=== PATIENT | male | born 1990 | race American Indian/Alaskan Native ===

== ENCOUNTER 2018-05-10 20:47 | Emergency (ER) | payer SELFPAY ==
--- NOTE | 2018-05-10 21:02 | Emergency Department Report ---
Blank Doc - Documentation Documentation: Bump on left eyebrow and left jaw time a few months. 9/10 when he touches it. Itches. Has had drainage This initial assessment diagnostic orders/clinical plan/treatment (s) is/Are subject change based on patient's health status, clinical progression and re- assessment by fellow clinical providers in the ED. Further treatment and work-up at subsequent clinical providers discretion. Patient/guardians urged not to elope from their condition may be serious if not clinically assessed and managed. Initial order include:
[2018-05-10] MEDS ORDERED: ULTRAM PO ONE (23:27)
--- NOTE | 2018-05-10 23:37 | Emergency Department Report ---
ED ENT HPI - General Chief complaint: Dental/Oral Stated complaint: PAIN ON LEFT SIDE OF FACE/EYE Time Seen by Provider: 05/10/18 23:24 Source: patient Mode of arrival: Ambulatory Limitations: No Limitations - History of Present Illness Initial comments: Patient is a 28-year-old AA male presents for abscess left cheek as well as she states masses itching painful just wants it checked out there is no swelling no drainage no erythema there is no fever there's involvement patient has history of multiple sebaceous cysts. There are no relieving or exacerbating factors. pt denies fever or chills MD complaint: other (left cheek ) Onset/Timin -: month(s) Severity: moderate Severity scale (0 -10): 4 Quality: other (itching ) Consistency: constant Improves with: none Worsens with: other (palpation) - Related Data Previous Rx's Medication Instructions Recorded Last Taken Type Ibuprofen 800 mg PO TID PRN #30 tablet 05/10/18 Unknown Rx Sulfamethoxazole/Trimethoprim 1 each PO BID 10 Days #20 tablet 05/10/18 Unknown Rx [Bactrim DS TAB] Allergies Allergy/AdvReac Type Severity Reaction Status Date / Time No Known Allergies Allergy Unverified 05/10/18 20:49 ED Dental HPI - General Chief complaint: Dental/Oral Stated complaint: PAIN ON LEFT SIDE OF FACE/EYE Time Seen by Provider: 05/10/18 23:24 Source: patient Mode of arrival: Ambulatory Limitations: No Limitations - Related Data Previous Rx's Medication Instructions Recorded Last Taken Type Ibuprofen 800 mg PO TID PRN #30 tablet 05/10/18 Unknown Rx Sulfamethoxazole/Trimethoprim 1 each PO BID 10 Days #20 tablet 05/10/18 Unknown Rx [Bactrim DS TAB] Allergies Allergy/AdvReac Type Severity Reaction Status Date / Time No Known Allergies Allergy Unverified 05/10/18 20:49 ED Review of Systems ROS: Stated complaint: PAIN ON LEFT SIDE OF FACE/EYE Other details as noted in HPI Constitutional: denies: chills, fever Eyes: denies: eye pain, eye discharge, vision change ENT: denies: ear pain, throat pain Respiratory: denies: cough, shortness of breath, wheezing Cardiovascular: denies: chest pain, palpitations Endocrine: no symptoms reported Gastrointestinal: denies: abdominal pain, nausea, diarrhea Genitourinary: denies: urgency, dysuria Musculoskeletal: denies: back pain, joint swelling, arthralgia Skin: other (left cheek cyst ). denies: rash, lesions Neurological: denies: headache, weakness, paresthesias Psychiatric: denies: anxiety, depression Hematological/Lymphatic: denies: easy bleeding, easy bruising ED Past Medical Hx - Past Medical History Previous Medical History?: No - Surgical History Additional Surgical History: Multiple Abscesses - Social History Smoking Status: Current Every Day Smoker Substance Use Type: None - Medications Home Medications: Home Medications Medication Instructions Recorded Confirmed Last Taken Type Ibuprofen 800 mg PO TID PRN #30 tablet 05/10/18 Unknown Rx Sulfamethoxazole/Trimethoprim 1 each PO BID 10 Days #20 tablet 05/10/18 Unknown Rx [Bactrim DS TAB] ED Physical Exam - General Limitations: No Limitations General appearance: alert, in no apparent distress - Head Head exam: Present: normocephalic - Expanded Head Exam Expanded Head exam: Present: other (left cheek cyst ). Absent: abrasion, contusion, hematoma, racoon eyes, high's sign, general tenderness, tenderness of temporal artery, CSF rhinorrhea, CSF otorrhea 1 - cyst 1x1 circular soft moveable nontender no erythema no drainage no cervicle lymph - Eye Eye exam: Present: normal appearance, PERRL, EOMI Pupils: Present: normal accommodation - ENT ENT exam: Present: normal orophraynx, mucous membranes moist, TM's normal bilaterally, normal external ear exam - Neck Neck exam: Present: normal inspection, full ROM. Absent: tenderness, meningismus, lymphadenopathy, thyromegaly - Respiratory Respiratory exam: Present: normal lung sounds bilaterally. Absent: respiratory distress, wheezes, stridor, chest wall tenderness - Cardiovascular Cardiovascular Exam: Present: regular rate, normal rhythm, normal heart sounds. Absent: systolic murmur, diastolic murmur, rubs, gallop - GI/Abdominal GI/Abdominal exam: Present: soft, normal bowel sounds - Rectal Rectal exam: Present: deferred - Extremities Exam Extremities exam: Present: normal inspection - Back Exam Back exam: Present: normal inspection, full ROM. Absent: tenderness - Neurological Exam Neurological exam: Present: alert, oriented X3 - Psychiatric Psychiatric exam: Present: normal affect, normal mood - Skin Skin exam: Present: warm, dry, intact, normal color, other (cyst left cheek ). Absent: rash ED Course Vital Signs 05/10/18 05/10/18 20:54 20:59 Temperature 98.8 F 98.8 F Pulse Rate 76 75 Respiratory 18 18 Rate Blood Pressure 164/100 164/100 O2 Sat by Pulse 99 99 Oximetry ED Medical Decision Making - Medical Decision Making this is a left cheek cyst with 4/10 pain , cyst is movable soft, no drainage no erythema no fever no oral tenderness or swelling no cervical lymph no feve or chiells, there are multiple small cyst to left eyebrow and forehead on with purulent drainage, plan, bactrim DS, ibuprofen, follow up with General surgery for eval and possible removal as requested by patient, pt will dc'd to home with rx for abx and nsaids, pt will follow up with general surgery in 2-3 days , return to emergency if symptoms worsen. Critical care attestation.: If time is entered above; I have spent that time in minutes in the direct care of this critically ill patient, excluding procedure time. ED Disposition Clinical Impression: Sebaceous cyst, Cellulitis of forehead, Infected sebaceous cyst Disposition: DC-01 TO HOME OR SELFCARE Is pt being admited?: No Does the pt Need Aspirin: No Condition: Stable Instructions: Cellulitis (ED) Prescriptions: Ibuprofen 800 mg PO TID PRN #30 tablet PRN Reason: pain Sulfamethoxazole/Trimethoprim [Bactrim DS TAB] 1 each PO BID 10 Days #20 tablet Referrals: TANNER GONZALEZ MD [Staff Physician] - 3-5 Days Forms: Work/School Release Form(ED) Time of Disposition: 23:59
[2018-05-11 00:13] VITALS: BP 146/95
== END 2018-05-11 00:12 | disposition home or self-care (01) ==
LOC: ED 20:47
DX: L03.211 Cellulitis of face (principal); L72.3 Sebaceous cyst; F17.200 Nicotine dependence, unspecified, uncomplicated
CPT/HCPCS: 99282